=== PATIENT | female | born 1965 | race Caucasian/White ===

== ENCOUNTER 2017-10-15 22:22 | Emergency (ER) | payer OTHER ==
[2017-10-15] MEDS ORDERED: ACETAMINOPHEN 500 MG TAB PO ONE (22:27)
--- NOTE | 2017-10-15 22:30 | EDPHY ---
H & P Time Seen by Provider: 10/15/17 22:27 HPI/ROS: HPI CHIEF COMPLAINT: Right knee pain. HISTORY OF PRESENT ILLNESS: Patient is a 52-year-old female she is visiting from the [place] for graduation, she staying at a local hotel and this morning she was crawling into bed and she leaned on her right knee. When she leaned on her right knee she heard a pop and immediately had right anterior knee pain. The pain eventually subsided today however she walked on it all day and now has increasing right knee pain. She staying at a local hotel took an ambulance here to the emergency room. Denies any other areas of injury. Patient denies chest pain or shortness of breath. Denies fever. Past Medical History: Chronic low back pain., recent left foot fracture. Past Surgical History: No recent surgery Social History: Denies daily use of drugs alcohol tobacco. Resides in [place]. Family History: Noncontributory ROS REVIEW OF SYSTEMS: A comprehensive 10 point review of systems is otherwise negative aside from elements mentioned in the history of present illness. Exam Constitutional appears well nontoxic no acute distress, triage nursing summary reviewed, vital signs reviewed, awake/alert. Eyes normal conjunctivae and sclera, EOMI, PERRLA. HENT normal inspection, atraumatic, moist mucus membranes, no epistaxis, neck supple/ no meningismus, no raccoon eyes. Respiratory clear to auscultation bilaterally, normal breath sounds, no respiratory distress, no wheezing. Cardiovascular rate normal, regular rhythm, no murmur, no edema, distal pulses normal. Gastrointestinal soft, non-tender, no rebound, no guarding, normal bowel sounds, no distension, no pulsatile mass. Genitourinary no CVA tenderness. Musculoskeletal right lower extremity: Right lower extremity shows neurovascularly intact, good distal pulse, good cap refill, I am able to fully flex and extend her right knee. I do not appreciate any significant joint swelling. Patella appears to be in appropriate position. Patella tendon intact. No compartment syndrome. no midline vertebral tenderness, full range of motion, no calf swelling, no tenderness of extremities, no meningismus, good pulses, neurovascularly intact. Skin pink, warm, & dry, no rash, skin atraumatic. Neurologic awake, alert and oriented x 3, AAOx3, moves all 4 extremities equally, motor intact, sensory intact, CN II-XII intact, normal cerebellar, normal vision, normal speech. Psychiatric normal mood/affect. Heme/Lymph/Immune no lymphadenopathy. Differential Diagnosis: Includes but is not limited to in a particular order right knee strain, right knee sprain, right knee contusion, fracture, tibial plateau fracture, malalignment, osteoarthritis, ligamentous injury, meniscal injury Medical Decision Making: Plan for this patient x-ray right knee, 1 g of Tylenol , and re-evaluate. Re-evaluation: X-ray the right knee reviewed. No evidence of acute fracture. Plan for this patient knee immobilizer, crutches. Recommend ice. Elevation rest. Recommend anti-inflammatory pain medicine. Recommend close follow-up with orthopedic doctor when she returns home. Recommend follow up with Orthopedics. A disc will be provided as she is traveling home. Crutches and knee immobilizer. Source: Patient, EMS Constitutional: Initial Vital Signs Temperature (C) 36.8 C 10/15/17 22:34 Heart Rate 74 10/15/17 22:34 Respiratory Rate 16 10/15/17 22:34 Blood Pressure 100/62 10/15/17 22:34 O2 Sat (%) 96 10/15/17 22:34 O2 Delivery Mode Room Air Allergies/Adverse Reactions: No Known Allergies Allergy (Unverified 10/15/17 22:35) Home Medications: Medication Instructions Recorded Ibuprofen [Motrin (*)] 800 mg PO Q6-8PRN #10 tab 10/15/17 Medical Decision Making - Diagnostics Imaging Results: Imaging Impressions Knee X-Ray 10/15/17 22:26 Impression: No definite fracture of the right knee. - Data Points Medications Given: Discontinued Medications Acetaminophen (Tylenol) 1,000 mg PO EDNOW ONE Stop: 10/15/17 22:28 Last Admin: 10/15/17 22:37 Dose: 1,000 mg Departure - Departure Disposition: Home, Routine, Self-Care Clinical Impression: Knee sprain Qualifiers: Encounter type: initial encounter Involved ligament of knee: unspecified ligament Laterality: right Qualified Code(s): S83.91XA - Sprain of unspecified site of right knee, initial encounter Condition: Good Instructions: Knee Sprain (ED) Additional Instructions: 1. Knee immobilizer for comfort. 2. Anti-inflammatory pain medicine like Tylenol or Motrin for pain control. 3. Recommend icing your knee. 4. Follow up with orthopedic or your primary care doctor when he returns to [place]. Referrals: Patient,NotPresent [Unknown] - As per Instructions Prescriptions: Ibuprofen [Motrin (*)] 800 mg PO Q6-8PRN #10 tab
[2017-10-15 22:35] VITALS: BP 100/62
== END 2017-10-15 23:43 | disposition home or self-care (01) ==
DX: S83.91XA Sprain of unspecified site of right knee, initial encounter (principal); X58.XXXA Exposure to other specified factors, initial encounter
CPT/HCPCS: L1830